=== PATIENT | female | born 1985 | race Caucasian/White ===

== ENCOUNTER 2017-08-02 11:38 | Emergency (ER) | payer MEDICAID ==
[~2017-08-02] VITALS: Ht 167.6 cm; Wt 99.5 kg
[2017-08-02 11:41] VITALS: Ht 167.6 cm; Wt 99.5 kg
[2017-08-02] MEDS ORDERED: ACETAMINOPHEN 500 MG TAB PO STA (13:10)
[2017-08-02] MEDS ORDERED: TYL500 PO (13:28)
--- NOTE | 2017-08-02 13:37 | ERD ---
ER Documentation Chief Complaint Date/Time DATE: 08/02/17 TIME: 13:34 Chief Complaint HEAD LAC , HIT HER HEAD ON CABINET , NO K/O HPI This is a 31-year-old female presents to the ER with a laceration to the left side of her head. Patient was cleaning a cabinet when she cut her head open. Patient states she was bleeding, however bleeding has resolved. Patient recently found out she was . She denies any vaginal bleeding, pelvic pain or vaginal discharge. She did start taking vitamins. A0 patient did not lose consciousness at the time of the accident. She has not had any nausea or vomiting. ROS 12 point review of systems was done, all negative except per HPI. Medications Home Meds Active Scripts Acetaminophen* (Tylenol*) 500 Mg Tab, 1000 MG PO Q8H Y for PAIN AND OR ELEVATED TEMP for 3 Days, TAB Prov:QUOC SANCHEZ Grace 08/02/17 Allergies Allergies: Coded Allergies: No Known Drug Allergy (Verified Allergy, Unknown, 01/05/09) Physical Exam Vitals Vital Signs Date Time Temp Pulse Resp B/P Pulse Ox O2 Delivery O2 Flow Rate FiO2 08/02/17 11:41 98.1 88 18 132/76 99 Physical Exam GENERAL: The patient is well developed and appropriate for usual state of health , in no apparent distress. HEENT: Atraumatic. CHEST: Clear to auscultation bilaterally. There are no rales, wheezes or rhonchi. HEART: Regular rate and rhythm. No murmurs, clicks, rubs or gallops. BACK: No midline or flank tenderness. NEURO: Alert and oriented. Cranial nerves II through XII are intact. Negative Romberg. Normal strength and sensation extremities. SKIN: There is a small 0.5 cm linear laceration to the left side of the scalp Results 24 hrs Current Medications Medications (Trade) Dose Ordered Sig/Prasanth Route PRN Reason Start Time Stop Time Status Last Admin Dose Admin Acetaminophen (Tylenol Tab) 1,000 mg ONCE STAT PO 08/02/17 13:10 08/02/17 13:11 DC 08/02/17 13:19 Procedures/MDM This is a 31-year-old female that presents to the ER after she hit her head on the cupboard cutting it open, and she has a small scalp laceration which was repaired with one staple without any complications. Arriving to the ER. Patient is neurologically intact with no focal neurological deficits and she did not have any loss of consciousness, nausea, vomiting. Patient is currently newly , risks of CT imaging with outweigh the benefits. She did not have any vaginal complaints. Patient will be sent home with Tylenol for any headaches. She is to follow-up with her primary care doctor within 1-2 days return to ER sooner if symptoms worsen. My medical decision making was shared with the patient she understands and agrees with plan. Departure Diagnosis: Primary Impression: Laceration Condition: Stable Patient Instructions: Laceration, Scalp Additional Instructions: Call your primary care doctor TOMORROW for an appointment during the next 1-2 days.See the doctor sooner or return here if your condition worsens before your appointment time. QUOC SANCHEZ Aug 02, 2017 13:37
== END 2017-08-02 14:56 | disposition home or self-care (01) ==
LOC: FTE 11:38
DX: S01.01XA Laceration without foreign body of scalp, initial encounter (principal); W22.03XA Walked into furniture, initial encounter; Y92.9 Unspecified place or not applicable
CPT/HCPCS: 12001; Z7502; Z7610

== ENCOUNTER 2018-03-25 22:11 | Outpatient (CLI) | END 2018-03-26 02:00 | disposition home or self-care (01) ==

== ENCOUNTER 2018-03-29 07:44 | Outpatient (CLI) | END 2018-03-29 09:40 | disposition home or self-care (01) ==

== ENCOUNTER 2018-04-07 11:27 | Inpatient (IN) | END 2018-04-10 16:05 | disposition home or self-care (01) | DRG 775 ==

== ENCOUNTER 2018-06-15 15:06 | Emergency (ER) | END 2018-06-15 17:10 | disposition home or self-care (01) ==